=== PATIENT | male | born 1955 | race Caucasian/White ===

== ENCOUNTER 2019-01-21 14:18 | Emergency (ER) | payer OTHER ==
[~2019-01-21] VITALS: Ht 170.2 cm; Wt 68.2 kg
[~2019-01-21 14:18] MED LIST: ARIP10TA8 PO; CARI350T26 PO; FENT-76 TD; HYDR50CA9 PO; OXYC10 PO
[2019-01-21 14:54] VITALS: BP 148/78
[2019-01-21] MEDS ORDERED: SODIUM CHLORIDE 0.9% 1,000 ML IV ONE (15:15)
[2019-01-21 15:43] LABS: ANION GAP 10 mmol/L (8-16); CALCIUM, TOTAL 9.2 mg/dL (8.8-10.5); CARBON DIOXIDE 26 mmol/L (22-29); CHLORIDE 103 mmol/L (98-107); CREATININE 1.02 mg/dL (0.60-1.30); GLOMERULAR FILTR. RATE CALC > 60 mL/min (>60); GLUCOSE,RANDOM 124 mg/dL (70-110); POTASSIUM 3.9 mmol/L (3.5-5.1); SODIUM SERUM 139 mmol/L (136-145); UREA NITROGEN, BLOOD 13 mg/dL (7-18)
[2019-01-21 15:49] LABS: ALANINE AMINOTRANSFERASE 16 U/L (12-78); ALBUMIN 3.6 g/dL (3.4-5.0); ALKALINE PHOSPHATASE 26 U/L (46-116); ASPARTATE AMINOTRANSFERASE 23 U/L (15-37); BILIRUBIN,TOTAL 0.6 mg/dL (0.1-1.0); TOTAL PROTEIN, SERUM 7.8 g/dL (6.4-8.2)
[2019-01-21 16:22] LABS: INFLUENZA TYPE A NEGATIVE FOR TYPE A (NEGATIVE); INFLUENZA TYPE B NEGATIVE FOR TYPE B (NEGATIVE)
[2019-01-21 16:32] LABS: BASOPHILS % (AUTO) 0.4 % (0.0-2.0); EOSINOPHILS % (AUTO) 0.6 % (1.0-6.0); HEMATOCRIT 40.9 % (41-53); LYMPHOCYTES # (AUTO) 2.1 K/uL (1.0-4.8); LYMPHOCYTES % (AUTO) 22.1 % (22.0-44.0); MEAN CORPUSCULAR HEMOGLOBIN 30.8 pg (26.0-34.0); MEAN CORPUSCULAR HGB CONC 34.1 G/dL (31.0-37.0); MEAN CORPUSCULAR VOLUME 90 fL (80-100); MONOCYTES # (AUTO) 0.8 K/uL (0.1-1.0); MONOCYTES % (AUTO) 8.5 % (2.0-9.0); NEUTROPHILS # (AUTO) 6.6 K/uL (1.8-7.7); NEUTROPHILS % (AUTO) 68.4 % (40.0-70.0); RED BLOOD CELL COUNT(AUTO) 4.54 MIL/uL (4.50-5.90)
[2019-01-21 17:20] LABS: PLATELET COUNT (AUTO) 167 K/uL (150-450)
== END 2019-01-21 17:02 | disposition left against medical advice (07) ==
LOC: EMS 14:20
DX: B34.9 Viral infection, unspecified (principal); M79.10 Myalgia, unspecified site; H92.03 Otalgia, bilateral; J02.9 Acute pharyngitis, unspecified; F17.210 Nicotine dependence, cigarettes, uncomplicated; F41.9 Anxiety disorder, unspecified; F32.9 Major depressive disorder, single episode, unspecified; F11.90 Opioid use, unspecified, uncomplicated; F12.90 Cannabis use, unspecified, uncomplicated; G89.29 Other chronic pain
CPT/HCPCS: 87804; 99406

== ENCOUNTER 2019-01-22 09:21 | Emergency (ER) | payer OTHER ==
[~2019-01-22] VITALS: Ht 167.6 cm; Wt 63.6 kg
[2019-01-22 09:48] VITALS: BP 106/79
== END 2019-01-22 10:28 | disposition left against medical advice (07) ==
LOC: EMS 09:24
DX: R05 Cough (principal); R09.81 Nasal congestion; R06.02 Shortness of breath; G89.29 Other chronic pain; M54.9 Dorsalgia, unspecified; F41.9 Anxiety disorder, unspecified; F32.9 Major depressive disorder, single episode, unspecified; F17.210 Nicotine dependence, cigarettes, uncomplicated; F11.90 Opioid use, unspecified, uncomplicated; F12.90 Cannabis use, unspecified, uncomplicated; Z79.899 Other long term (current) drug therapy; Z86.19 Personal history of other infectious and parasitic diseases

== ENCOUNTER 2020-06-22 07:28 | Emergency (ER) | payer MEDICARE, OTHER ==
[~2020-06-22] VITALS: Ht 175.3 cm; Wt 65.9 kg
[2020-06-22] MEDS ORDERED: LIDOCAINE 2%/EPI 1:200,000/PF 20 ML VIAL SQ ONE (08:00)
[2020-06-22] MEDS ORDERED: DOXYCYCLINE HYCLATE 100 MG TABLET PO ONE (08:00)
[2020-06-22] MEDS ORDERED: CEPHALEXIN MONOHYDRATE 500 MG CAPSULE PO ONE (08:00)
[2020-06-22 08:39] VITALS: BP 134/81
== END 2020-06-22 08:50 | disposition home or self-care (01) ==
LOC: EMS 07:28
DX: L02.211 Cutaneous abscess of abdominal wall (principal); F11.10 Opioid abuse, uncomplicated; F41.9 Anxiety disorder, unspecified; F32.9 Major depressive disorder, single episode, unspecified; F17.210 Nicotine dependence, cigarettes, uncomplicated; F12.90 Cannabis use, unspecified, uncomplicated
CPT/HCPCS: 10060; 99283

== ENCOUNTER 2020-10-13 13:19 | Emergency (ER) | payer MEDICARE, OTHER ==
[~2020-10-13] VITALS: Ht 175.3 cm; Wt 70.5 kg
[2020-10-13] MEDS ORDERED: VANCOMYCIN HCL 1.5 GM in DEXTROSE 5%-WATER 250 ML IV ONE (15:00)
[2020-10-13] MEDS ORDERED: ONDANSETRON HCL 4 MG/2 ML VIAL IVP ONE (15:45)
[2020-10-13] MEDS ORDERED: HYDROmorphone 2 MG/ML VIAL IVP ONE ×2 (15:45→17:00)
[2020-10-13 16:22] LABS: BASOPHILS % (AUTO) 0.3 % (0.0-2.0); EOSINOPHILS % (AUTO) 2.5 % (1.0-6.0); HEMATOCRIT 40.7 % (41-53); HEMOGLOBIN 13.5 g/dL (13.5-17.5); LYMPHOCYTES # (AUTO) 1.8 K/uL (1.0-4.8); MEAN CORPUSCULAR HEMOGLOBIN 30.3 pg (26.0-34.0); MEAN CORPUSCULAR HGB CONC 33.1 G/dL (31.0-37.0); MEAN CORPUSCULAR VOLUME 91 fL (80-100); MONOCYTES # (AUTO) 0.7 K/uL (0.1-1.0); NEUTROPHILS # (AUTO) 4.8 K/uL (1.8-7.7); NEUTROPHILS % (AUTO) 64.2 % (40.0-70.0); PLATELET COUNT (AUTO) 221 K/uL (150-450); RED BLOOD CELL COUNT(AUTO) 4.46 MIL/uL (4.50-5.90)
[2020-10-13 16:32] LABS: ANION GAP 12 mmol/L (8-16); CALCIUM, TOTAL 9.7 mg/dL (8.8-10.5); CARBON DIOXIDE 26 mmol/L (22-29); CHLORIDE 102 mmol/L (98-107); GLOMERULAR FILTR. RATE CALC > 60 mL/min (>60); GLUCOSE,RANDOM 100 mg/dL (70-110); POTASSIUM 3.9 mmol/L (3.5-5.1); SODIUM SERUM 140 mmol/L (136-145); UREA NITROGEN, BLOOD 12 mg/dL (7-18)
[2020-10-13 16:38] LABS: ALANINE AMINOTRANSFERASE 23 U/L (12-78); ALKALINE PHOSPHATASE 32 U/L (46-116); ASPARTATE AMINOTRANSFERASE 23 U/L (15-37); BILIRUBIN,TOTAL 0.7 mg/dL (0.1-1.0); TOTAL PROTEIN, SERUM 8.7 g/dL (6.4-8.2)
[2020-10-13 16:41] LABS: LACTIC ACID 1.3 mmol/L (0.4-2.0)
[2020-10-13] MEDS ORDERED: ACETAMINOPHEN 325 MG TABLET PO PRN (17:00)
[2020-10-13] MEDS ORDERED: 0.9% SODIUM CHLORIDE 10 ML SYRINGE IVP PRN (17:00)
[2020-10-13] MEDS ORDERED: ONDANSETRON HCL 4 MG/2 ML VIAL IVP PRN (17:00)
[2020-10-13] MEDS ORDERED: HYDROmorphone 2 MG/ML VIAL IVP PRN (17:00)
[2020-10-13 17:19] LABS: COVID AG,FIA SOURCE NASOPHARYNGEAL
[2020-10-13 17:45] VITALS: BP 128/71
[2020-10-14] MEDS ORDERED: VANCOMYCIN HCL 1 GM/D5% WATER 200 ML IV ONE (01:00)
== END 2020-10-13 20:00 | disposition left against medical advice (07) ==
LOC: EMS 13:24
DX: L03.116 Cellulitis of left lower limb (principal); F11.988 Opioid use, unspecified with other opioid-induced disorder; F41.9 Anxiety disorder, unspecified; F32.9 Major depressive disorder, single episode, unspecified; F12.90 Cannabis use, unspecified, uncomplicated; Z20.822 Contact with and (suspected) exposure to COVID-19
CPT/HCPCS: 36415; 73700; 80053; 83605; 85025; 87040; 87426; 96365; 96366; 96375; 96376; 99284; J1170; J2405; J3370; J7060

== ENCOUNTER 2021-12-02 21:38 | Emergency (ER) | payer MEDICARE, OTHER ==
[~2021-12-02] VITALS: Ht 175.3 cm; Wt 68.2 kg
[2021-12-02 21:42] VITALS: BP 136/90
[2021-12-02] MEDS ORDERED: SULF-261 PO ×2 (22:12→22:20)
== END 2021-12-02 22:27 | disposition home or self-care (01) ==
LOC: EMS 22:12
DX: L03.317 Cellulitis of buttock (principal); F11.10 Opioid abuse, uncomplicated; F41.9 Anxiety disorder, unspecified; F32.A Depression, unspecified; G89.29 Other chronic pain; F17.210 Nicotine dependence, cigarettes, uncomplicated; F12.90 Cannabis use, unspecified, uncomplicated
CPT/HCPCS: 99283

== ENCOUNTER 2022-08-22 04:06 | Emergency (ER) | payer MEDICARE, OTHER ==
[~2022-08-22] VITALS: Ht 175.3 cm; Wt 56.8 kg
[~2022-08-22 04:06] MED LIST changes: -ARIP10TA8 PO; -CARI350T26 PO; -FENT-76 TD; -HYDR50CA9 PO; -OXYC10 PO; +SULF-261 PO
[2022-08-22 04:12] VITALS: BP 125/104; PULSE 78; RESP 18; TEMP 98.7
[2022-08-22] MEDS ORDERED: HYDR30CR3 TP (04:34)
== END 2022-08-22 04:44 | disposition home or self-care (01) ==
LOC: EMS 04:08
DX: L30.1 Dyshidrosis [pompholyx] (principal); F41.9 Anxiety disorder, unspecified; F32.A Depression, unspecified; G89.29 Other chronic pain; M54.9 Dorsalgia, unspecified; F17.210 Nicotine dependence, cigarettes, uncomplicated; F12.90 Cannabis use, unspecified, uncomplicated; F19.90 Other psychoactive substance use, unspecified, uncomplicated; Z98.890 Other specified postprocedural states
CPT/HCPCS: 99282; Z7502

== ENCOUNTER 2022-09-27 14:31 | Emergency (ER) | payer MEDICARE, OTHER ==
[~2022-09-27] VITALS: Ht 167.6 cm; Wt 68.2 kg
[~2022-09-27 14:31] MED LIST changes: +HYDR30CR3 TP
[2022-09-27 14:32] VITALS: BP 131/78; PULSE 66; RESP 16; TEMP 98.3
[2022-09-27] MEDS ORDERED: METH5SOL3 PO (14:35)
[2022-09-27] MEDS ORDERED: TRI2515O TP ×2 (14:45→15:15)
[2022-09-27] MEDS ORDERED: NYST30CR9 TP ×2 (14:45→15:15)
== END 2022-09-27 15:17 | disposition home or self-care (01) ==
LOC: EMS 14:34
DX: N43.3 Hydrocele, unspecified (principal); F41.9 Anxiety disorder, unspecified; F32.A Depression, unspecified; G89.29 Other chronic pain; M54.9 Dorsalgia, unspecified; F17.210 Nicotine dependence, cigarettes, uncomplicated; F12.90 Cannabis use, unspecified, uncomplicated; Z79.891 Long term (current) use of opiate analgesic
CPT/HCPCS: 99283; Z7502

== ENCOUNTER 2022-12-26 10:14 | Emergency (ER) | payer MEDICARE, OTHER ==
[~2022-12-26] VITALS: Ht 167.6 cm; Wt 63.6 kg
[~2022-12-26 10:14] MED LIST changes: -HYDR30CR3 TP; +METH5SOL3 PO; +NYST30CR9 TP; -SULF-261 PO; +TRI2515O TP
[2022-12-26 10:24] VITALS: BP 110/81; PULSE 125; RESP 16; TEMP 98.4
== END 2022-12-26 12:30 | disposition home or self-care (01) ==
LOC: EMS 10:18
DX: I86.1 Scrotal varices (principal); F41.9 Anxiety disorder, unspecified; F32.A Depression, unspecified; G89.29 Other chronic pain; M54.9 Dorsalgia, unspecified; F17.210 Nicotine dependence, cigarettes, uncomplicated; F12.90 Cannabis use, unspecified, uncomplicated; F11.90 Opioid use, unspecified, uncomplicated; Z98.890 Other specified postprocedural states
CPT/HCPCS: 76870; 99284; Z7502

== ENCOUNTER 2023-01-27 10:34 | Emergency (ER) | payer MEDICARE, OTHER ==
[~2023-01-27] VITALS: Ht 175.3 cm; Wt 70.5 kg
[~2023-01-27 10:34] MED LIST changes: -NYST30CR9 TP; -TRI2515O TP
[2023-01-27 10:59] VITALS: TEMP 98.1
[2023-01-27] MEDS ORDERED: AMOX250C4 PO (12:14)
[2023-01-27] MEDS ORDERED: IBUPROFEN 600 MG TABLET PO ONE (12:15)
[2023-01-27 12:20] VITALS: BP 122/80; PULSE 60; RESP 16
== END 2023-01-27 12:21 | disposition home or self-care (01) ==
LOC: EMS 10:34
DX: H66.91 Otitis media, unspecified, right ear (principal); F41.9 Anxiety disorder, unspecified; F32.A Depression, unspecified; G89.29 Other chronic pain; M54.9 Dorsalgia, unspecified; F17.210 Nicotine dependence, cigarettes, uncomplicated; F12.90 Cannabis use, unspecified, uncomplicated; F11.90 Opioid use, unspecified, uncomplicated; Z98.890 Other specified postprocedural states
CPT/HCPCS: 99283

== ENCOUNTER 2023-04-11 11:06 | Emergency (ER) | payer OTHER ==
[~2023-04-11] VITALS: Ht 165.1 cm; Wt 68.6 kg
[~2023-04-11 11:06] MED LIST changes: +AMOX250C4 PO; +METH5SOL20 PO; -METH5SOL3 PO
[2023-04-11 11:22] VITALS: BP 162/117; PULSE 66; RESP 18; TEMP 98.5
[2023-04-11] MEDS: GABAPENTIN 300 MG CAPSULE PO ONE (12:23)
[2023-04-11] MEDS: ACETAMINOPHEN/CODEINE 300-30 MG TABLET PO ONE (12:23)
[2023-04-11] MEDS: KETOROLAC TROMETHAMINE 60 MG/2 ML VIAL IM ONE (12:24)
[2023-04-11 12:58] LABS: APPEARANCE,URINE CLEAR (CLEAR); BILIRUBIN,URINE NEGATIVE (NEGATIVE); COLOR,URINE COLORLESS (YELLOW); GLUCOSE, URINE (UA) NEGATIVE (NEGATIVE); KETONES,URINE NEGATIVE (NEGATIVE); LEUKOCYTE ESTERASE ,URINE NEGATIVE (NEGATIVE); NITRATE,URINE NEGATIVE (NEGATIVE); OCCULT BLOOD,URINE NEGATIVE (NEGATIVE); PROTEIN,URINE NEGATIVE (NEGATIVE); SPECIFIC GRAVITIY, URINE 1.003 (1.003-1.030); UROBILINOGEN,URINE <=1.0 mg/dL (<=1.0)
[2023-04-11 12:58] LABS: ANION GAP 8 mmol/L (8-16); CALCIUM, TOTAL 9.7 mg/dL (8.8-10.5); CARBON DIOXIDE 27 mmol/L (22-29); CHLORIDE 100 mmol/L (98-107); CREATININE 0.93 mg/dL (0.60-1.30); GLOMERULAR FILTR. RATE CALC > 60 mL/min (>60); GLUCOSE,RANDOM 108 mg/dL (70-110); POTASSIUM 4.2 mmol/L (3.5-5.1); SODIUM SERUM 135 mmol/L (136-145); UREA NITROGEN, BLOOD 5 mg/dL (7-18)
[2023-04-11 13:45] LABS: BACTERIA,URINE None Seen /HPF (None Seen); RBC,URINE None Seen /HPF (0-2); WBC,URINE None Seen /HPF (0-5)
[2023-04-11] MEDS ORDERED: CEPH-558 PO (14:21)
[2023-04-11] MEDS ORDERED: IBUP-1554 PO (14:21)
[2023-04-11] MEDS ORDERED: ACET-2080 PO (14:21)
== END 2023-04-11 14:45 | disposition still patient (30) ==
LOC: EMS 11:09
DX: N43.3 Hydrocele, unspecified (principal); N50.811 Right testicular pain; F41.9 Anxiety disorder, unspecified; F32.A Depression, unspecified; G89.29 Other chronic pain; M54.9 Dorsalgia, unspecified; F17.210 Nicotine dependence, cigarettes, uncomplicated; F12.90 Cannabis use, unspecified, uncomplicated; Z98.890 Other specified postprocedural states
CPT/HCPCS: 99285; 80048; 81001; 36415; 76870; 96372; J1885

== ENCOUNTER 2023-05-22 07:54 | Emergency (ER) | payer OTHER ==
[~2023-05-22] VITALS: Ht 175.3 cm; Wt 68.2 kg
[~2023-05-22 07:54] MED LIST changes: +ACET-2080 PO; -AMOX250C4 PO; +CEPH-558 PO; +IBUP-1554 PO
[2023-05-22 08:06] VITALS: BP 146/74; PULSE 59; RESP 16; TEMP 97.8
[2023-05-22] MEDS: PredniSONE 20 MG TABLET PO ONE (08:35)
[2023-05-22] MEDS ORDERED: PRED-554 PO (08:44)
== END 2023-05-22 08:54 | disposition home or self-care (01) ==
LOC: EMS 08:08
DX: R21 Rash and other nonspecific skin eruption (principal); F41.9 Anxiety disorder, unspecified; F32.A Depression, unspecified; G89.29 Other chronic pain; M54.9 Dorsalgia, unspecified; F17.210 Nicotine dependence, cigarettes, uncomplicated; F12.90 Cannabis use, unspecified, uncomplicated; Z98.890 Other specified postprocedural states
CPT/HCPCS: 99283; J7512

== ENCOUNTER 2023-08-19 21:41 | Emergency (ER) | payer OTHER ==
[~2023-08-19] VITALS: Ht 175.3 cm; Wt 68.2 kg
[~2023-08-19 21:41] MED LIST changes: +PRED-554 PO
[2023-08-19 21:48] VITALS: BP 126/77; PULSE 72; RESP 16; TEMP 97.5
== END 2023-08-19 22:31 | disposition home or self-care (01) ==
LOC: EMS 21:42
DX: S60.454A Superficial foreign body of right ring finger, initial encounter (principal); F17.210 Nicotine dependence, cigarettes, uncomplicated; F12.90 Cannabis use, unspecified, uncomplicated; W45.8XXA Other foreign body or object entering through skin, initial encounter; Y93.89 Activity, other specified; Y92.89 Other specified places as the place of occurrence of the external cause; Y99.8 Other external cause status
CPT/HCPCS: 99284; Z7502

== ENCOUNTER → 2023-11-12 | Emergency (ER) | payer OTHER ==
[~2023-11-12] VITALS: Ht 167.6 cm; Wt 65.9 kg
[~2023-11-12] MED LIST changes: +DOXY-354 PO; +IBUP-1493 PO
[2023-11-12 10:36] VITALS: BP 141/74; PULSE 72; RESP 18; TEMP 98.8; O2SAT 94
== END | disposition still patient (30) ==
LOC: EMS 10:33
DX: L02.31 Cutaneous abscess of buttock (principal); N43.3 Hydrocele, unspecified; F41.9 Anxiety disorder, unspecified; F32.A Depression, unspecified; G89.29 Other chronic pain; M54.9 Dorsalgia, unspecified; F17.210 Nicotine dependence, cigarettes, uncomplicated; F12.90 Cannabis use, unspecified, uncomplicated; F11.90 Opioid use, unspecified, uncomplicated
CPT/HCPCS: 99283; Z7502